=== PATIENT | female | born 1995 ===

== ENCOUNTER 2017-07-21 17:10 | Emergency (ER) | payer MEDICAID ==
[2017-07-21] MEDS ORDERED: MOTRIN PO ONE (20:32)
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
[2017-07-21 21:14] VITALS: BP 120/78
== END 2017-07-21 21:15 | disposition home or self-care (01) ==
LOC: ED 17:10
DX: S39.012A Strain of muscle, fascia and tendon of lower back, initial encounter (principal); S13.4XXA Sprain of ligaments of cervical spine, initial encounter; V89.2XXA Person injured in unspecified motor-vehicle accident, traffic, initial encounter; Y93.9 Activity, unspecified; Y92.89 Other specified places as the place of occurrence of the external cause; Y99.8 Other external cause status
CPT/HCPCS: 99282

== ENCOUNTER 2021-12-09 10:10 | Emergency (ER) | payer MEDICAID, OTHER ==
[2021-12-09] MEDS ORDERED: traMADol 50 MG TAB PO ONE (16:07)
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
[2021-12-09 17:14] VITALS: BP 110/88
== END 2021-12-09 17:12 | disposition home or self-care (01) ==
LOC: ED 10:10
DX: M54.2 Cervicalgia (principal); M79.18 Myalgia, other site; V89.2XXA Person injured in unspecified motor-vehicle accident, traffic, initial encounter; Y93.89 Activity, other specified; Y92.488 Other paved roadways as the place of occurrence of the external cause; Y99.8 Other external cause status
CPT/HCPCS: 72040; 99283